=== PATIENT | male | born 1975 | race Hispanic/Latino ===

== ENCOUNTER 2019-03-07 00:12 | Emergency (ER) | payer SELFPAY ==
[2019-03-07] MEDS ORDERED: ONDANSETRON ODT 8 MG TAB SL ONE (00:38)
[2019-03-07] MEDS ORDERED: ALUM & MAG HYDROX-SIMETHICONE 30 ML, LIDOCAINE VISCOUS 2% 15 ML PO ONE ×2 (00:38)
[2019-03-07] MEDS ORDERED: LIDOCAINE HCL 2% (MOUTH-THROAT) 15 ML UD ONE (00:43)
[2019-03-07] MEDS ORDERED: ALUM & MAG HYDROX-SIMETHICONE 30 ML UD ONE (00:43)
[2019-03-07] MEDS ORDERED: MAGNESIUM HYDROXIDE 30 ML UD PO ONE (01:05)
--- NOTE | 2019-03-07 01:25 | RAD ---
Acute abdominal series on 03/07/2019 CLINICAL INDICATION: Epigastric to right upper quadrant pain COMPARISON: None FINDINGS: CHEST: The lungs are clear. Cardiac, hilar and mediastinal contours are within normal limits. Pulmonary vascularity is within normal limits. ABDOMEN: There is no free air. Bowel gas pattern is nonspecific. No increased stool to suggest constipation is noted. No abnormal calcification or mass effect is noted. No bony abnormality is noted. IMPRESSION: 1. No acute cardiopulmonary disease. 2. Nonspecific abdomen. Electronically signed by: Stephen Coy 03/07/2019 1:23 AM CDT
[2019-03-07] MEDS ORDERED: SODIUM CHLORIDE 0.9% 1000ML 1,000 ML ONE (01:34)
[2019-03-07] MEDS ORDERED: SODIUM CHLORIDE 0.9% 1000ML 1,000 ML IVS ONE (01:35)
--- NOTE | 2019-03-07 01:37 | ED.PDOC ---
History of Present Illness - General Chief Complaint: Abdominal Pain Stated Complaint: mid abdomen pain radiates to back Time Seen by Provider: 03/07/19 00:38 Source: patient Exam Limitations: no limitations - History of Present Illness Initial Comments: the patient's 43-year-old male presented to emergency room secondary to 2 hours of epigastric to right upper quadrant discomfort. No nausea or vomiting. No fever. He experienced about an hour of similar discomfort 2 days ago. No syncope or near syncope. He does have significant heat exposure. Only a mild history of gastritis in the past. Timing/Duration: 1-3 hours Severity: moderate Improving Factors: nothing Worsening Factors: movement Associated Symptoms: malaise Allergies/Adverse Reactions: Allergies NO KNOWN ALLERGY Allergy (Verified 03/07/19 00:30) Home Medications: Ambulatory Orders Famotidine 20 mg PO DAILY #30 tab 03/07/19 Review of Systems - Review of Systems Constitutional: States: malaise EENTM: States: no symptoms reported Respiratory: States: no symptoms reported Cardiology: States: no symptoms reported Gastrointestinal/Abdominal: States: abdominal pain Genitourinary: States: no symptoms reported Musculoskeletal: States: no symptoms reported Skin: States: no symptoms reported Neurological: States: no symptoms reported Endocrine: States: no symptoms reported All other Systems: No Change from Baseline Past Medical History (General) - Patient Medical History Hx Seizures: No Hx Stroke: No Hx Dementia: No Hx Asthma: No Hx of COPD: No Hx Cardiac Disorders: No Hx Congestive Heart Failure: No Hx Pacemaker: No Hx Hypertension: No Hx Thyroid Disease: No Hx Diabetes: No Hx Gastroesophageal Reflux: No Hx Renal Disease: No Hx Cancer: No Hx of HIV: No Hx Hepatitis C: No Hx MRSA: No Surgical History: no surgical history - Vaccination History Hx Tetanus, Diphtheria Vaccination: No Hx Influenza Vaccination: No Hx Pneumococcal Vaccination: No - Social History Hx Alcohol Use: No Family Medical History - Family History Mother Family History: Unknown Physical Exam - Physical Exam General Appearance: Alert, Comfortable, No apparent distress Eye Exam: bilateral normal Ears, Nose, Throat: hearing grossly normal, normal ENT inspection Neck: full range of motion, supple Respiratory: lungs clear, normal breath sounds, no respiratory distress, no accessory muscle use Cardiovascular/Chest: normal peripheral pulses, regular rate, rhythm, no edema Peripheral Pulses: radial,right: 2+, radial,left: 2+, dorsalis pedis,right: 2+, dorsalis pedis,left: 2+ Gastrointestinal/Abdominal: soft, other - palpable stool. No rebound or peritoneal signs. Discomfort is primarily in the epigastric to right upper quadrant. 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 This is likely a combination of gastritis and constipation made worse by dehydration. He is given a dose of milk of magnesia here and is given a liter of IV fluids. He does need to increase his fluid intake. 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 He will also be written for some famotidine to help reduce any gastritis for the next few weeks as well. ER warnings were given for a significant worsening. X-ray and lab work are otherwise reassuring. - Results/Orders Results/Orders: 03/07/19 01:35 BOLUS Sodium Chloride 0.9% 1000ML [Ns 1000 ml] 1,000 ml IVS ONCE Laboratory Results - last 24 hr 03/07/19 03/07/19 03/07/19 00:39 00:39 00:39 WBC 7.1 RBC 4.82 Hgb 14.3 Hct 41.7 L MCV 86.5 MCH 29.6 MCHC 34.2 RDW 14.0 Plt Count 196 MPV 7.5 Absolute Neuts (auto) 4.00 Absolute Lymphs (auto) 2.40 Absolute Monos (auto) 0.40 Absolute Eos (auto) 0.20 Absolute Basos (auto) 0.00 Neutrophils % 57.1 Lymphocytes % 33.9 Monocytes % 6.3 Eosinophils % 2.4 Basophils % 0.3 D-Dimer, Quantitative 0.26 Sodium 140 Potassium 3.8 Chloride 105 Carbon Dioxide 27 Anion Gap 11.8 L BUN 15 Creatinine 1.03 BUN/Creatinine Ratio 14.6 Random Glucose 123 H Serum Osmolality 281.6 Lactic Acid Calcium 9.1 Magnesium 2.1 Total Bilirubin 0.8 AST 32 ALT 72 H Alkaline Phosphatase 54 Creatine Kinase 265 H* CK-MB (CK-2) 4.3 CK-MB (CK-2) % Not Reportable Troponin I < 0.02 Serum Total Protein 7.5 Albumin 4.3 Globulin 3.2 Albumin/Globulin Ratio 1.3 Amylase 53 Lipase 25 Urine Color Urine Appearance Urine pH Ur Specific [place] Urine Protein Urine Glucose (UA) Urine Ketones Urine Blood Urine Nitrite Urine Bilirubin Urine Urobilinogen Ur Leukocyte Esterase Urine RBC Urine WBC Ur Epithelial Cells Urine Bacteria Urine Mucus 03/07/19 03/07/19 00:39 00:51 WBC RBC Hgb Hct MCV MCH MCHC RDW Plt Count MPV Absolute Neuts (auto) Absolute Lymphs (auto) Absolute Monos (auto) Absolute Eos (auto) Absolute Basos (auto) Neutrophils % Lymphocytes % Monocytes % Eosinophils % Basophils % D-Dimer, Quantitative Sodium Potassium Chloride Carbon Dioxide Anion Gap BUN Creatinine BUN/Creatinine Ratio Random Glucose Serum Osmolality Lactic Acid 1.4 Calcium Magnesium Total Bilirubin AST ALT Alkaline Phosphatase Creatine Kinase CK-MB (CK-2) CK-MB (CK-2) % Troponin I Serum Total Protein Albumin Globulin Albumin/Globulin Ratio Amylase Lipase Urine Color Yellow Urine Appearance Clear Urine pH 5.5 Ur Specific [place] 1.025 Urine Protein Negative Urine Glucose (UA) Negative Urine Ketones Negative Urine Blood Negative Urine Nitrite Negative Urine Bilirubin Negative Urine Urobilinogen 0.2 Ur Leukocyte Esterase Negative Urine RBC 0-1 Urine WBC 5-10 H Ur Epithelial Cells 0 Urine Bacteria 1+ Urine Mucus Moderate acute abdominal series shows that he does have some significant stool buildup in the right upper quadrant. Departure - Departure Clinical Impression: Dehydration Gastritis Qualifiers: Gastritis type: unspecified gastritis Chronicity: acute Gastritis bleeding: without bleeding Qualified Code(s): K29.00 - Acute gastritis without bleeding Constipation Qualifiers: Constipation type: unspecified constipation type Qualified Code(s): K59.00 - Constipation, unspecified Disposition: Discharge to Home or Self Care Condition: Fair Departure Forms: ED Discharge - Pt. Copy, Patient Portal Self Enrollment Instructions: Constipation, Adult (DC) Diet: other - High-fiber Activity: increase activity as tolerated Referrals: UNKNOWN,PHYSICIAN [Primary Care Provider] - 1-2 Weeks Prescriptions: Famotidine 20 mg PO DAILY #30 tab Home Medications: Ambulatory Orders Famotidine 20 mg PO DAILY #30 tab 03/07/19 Additional Instructions: the patient is a 43-year-old male presenting to the emergency room secondary to abdominal pain. This is likely a combination of gastritis and constipation made worse by dehydration. He is given a dose of milk of magnesia here and is given a liter of IV fluids. He does need to increase his fluid intake. 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 He will also be written for some famotidine to help reduce any gastritis for the next few weeks as well. ER warnings were given for a significant worsening. X-ray and lab work are otherwise reassuring.
[2019-03-07 02:06] VITALS: TEMP 97.4
[2019-03-07 02:55] VITALS: BP 151/99; O2SAT 99
== END 2019-03-07 02:56 | disposition home or self-care (01) ==
LOC: ER 00:12
DX: K29.00 Acute gastritis without bleeding (principal); K59.00 Constipation, unspecified; E86.0 Dehydration
CPT/HCPCS: 36415; 74019; 80053; 81001; 82150; 82550; 82553; 83605; 83690; 83735; 84484; 85025; 85379; 93005; J7030